=== PATIENT | female | born 1980 | race American Indian/Alaskan Native ===

== ENCOUNTER 2018-12-03 11:09 | Emergency (ER) | payer SELFPAY ==
[2018-12-03] MEDS ORDERED: NORCO 10/325 PO ONE (14:32)
--- NOTE | 2018-12-03 14:34 | Emergency Department Report ---
Blank Doc - Documentation Documentation: This is a 38-year-old female that presents with right breast abscess. Stated is on clinda now. This initial assessment/diagnostic orders/clinical plan/treatment(s) is/are subject to change based on patient's health status, clinical progression and re- assessment by fellow clinical providers in the ED. Further treatment and workup at subsequent clinical providers discretion. Patient/guardians urged not to elope from the ED as their condition may be serious if not clinically assessed and managed. Initial orders include: 1- Patient sent to [facility] for further evaluation and treatment 2- [facility] for pain.
--- NOTE | 2018-12-03 15:51 | Emergency Department Report ---
- General Chief complaint: Skin/Abscess/Foreign Body Stated complaint: ABSCESS/R SIDE PAIN/DRAINAGE Time Seen by Provider: 12/03/18 14:32 Source: patient Mode of arrival: Ambulatory Limitations: No Limitations - History of Present Illness Initial comments: 38-year-old -[place] female presents to emergency room with pain and drainage from right breast abscess. Patient states she is currently on clindamycin that was prescribed to her at an ER in [place]. Patient reports that the ibuprofen is not helping with the pain. Patient reports she has not followed up with the breast specialists that she was referred to. Patient denies any fever or chills. MD complaint: abscess/boil Onset/Timin -: week(s) Severity scale (0 -10): 9 Quality: burning, sharp, constant Consistency: constant Improves with: none Worsens with: palpation, movement Associated symptoms: denies other symptoms Treatments Prior to Arrival: bandages, antibiotic, NSAID - Related Data Previous Rx's Medication Instructions Recorded Last Taken Type HYDROcodone/APAP 5-325 [Raymond 1 each PO Q6HR PRN #12 tablet 12/03/18 Unknown Rx 5/325] Ibuprofen [Motrin 800 MG tab] 800 mg PO Q8HR PRN #30 tablet 12/03/18 Unknown Rx cephALEXin [Keflex] 500 mg PO Q12HR 10 Days #20 cap 12/03/18 Unknown Rx Allergies Allergy/AdvReac Type Severity Reaction Status Date / Time No Known Allergies Allergy Unverified 12/03/18 11:16 Abscess Boil HPI - HPI Chief Complaint: Skin/Abscess/Foreign Body Stated Complaint: ABSCESS/R SIDE PAIN/DRAINAGE Time Seen by Provider: 12/03/18 14:32 Home Medications: Previous Rx's Medication Instructions Recorded Last Taken Type HYDROcodone/APAP 5-325 [Raymond 1 each PO Q6HR PRN #12 tablet 12/03/18 Unknown Rx 5/325] Ibuprofen [Motrin 800 MG tab] 800 mg PO Q8HR PRN #30 tablet 12/03/18 Unknown Rx cephALEXin [Keflex] 500 mg PO Q12HR 10 Days #20 cap 12/03/18 Unknown Rx Allergies/Adverse Reactions: Allergies Allergy/AdvReac Type Severity Reaction Status Date / Time No Known Allergies Allergy Unverified 12/03/18 11:16 ED Review of Systems ROS: Stated complaint: ABSCESS/R SIDE PAIN/DRAINAGE Other details as noted in HPI Comment: All other systems reviewed and negative Constitutional: denies: chills, fever Eyes: denies: eye pain, eye discharge, vision change ENT: denies: ear pain, throat pain Respiratory: denies: cough, shortness of breath, wheezing Cardiovascular: denies: chest pain, palpitations Skin: other (right breasts redness and pain) ED Past Medical Hx - Past Medical History Previous Medical History?: No - Surgical History Past Surgical History?: Yes Additional Surgical History: C section - Social History Smoking Status: Current Every Day Smoker Substance Use Type: Alcohol, Marijuana - Medications Home Medications: Home Medications Medication Instructions Recorded Confirmed Last Taken Type HYDROcodone/APAP 5-325 [Raymond 1 each PO Q6HR PRN #12 tablet 12/03/18 Unknown Rx 5/325] Ibuprofen [Motrin 800 MG tab] 800 mg PO Q8HR PRN #30 tablet 12/03/18 Unknown Rx cephALEXin [Keflex] 500 mg PO Q12HR 10 Days #20 cap 12/03/18 Unknown Rx ED Physical Exam - General Limitations: No Limitations General appearance: alert, in no apparent distress - Head Head exam: Present: atraumatic, normocephalic - Eye Eye exam: Present: normal appearance - ENT ENT exam: Present: mucous membranes moist - Neck Neck exam: Present: normal inspection - Back Exam Back exam: Present: normal inspection - Neurological Exam Neurological exam: Present: alert, oriented X3 - Psychiatric Psychiatric exam: Present: normal affect, normal mood - Expanded Skin Exam Expanded Type of lesion: Present: abscess Distribution of rash: other (right breasts) Description of rash: Present: tenderness, erythematous, swelling, discharge ED Course Vital Signs 12/03/18 11:17 Temperature 97.9 F Pulse Rate 60 Respiratory 17 Rate Blood Pressure 157/85 O2 Sat by Pulse 100 Oximetry ED Medical Decision Making - Medical Decision Making 38-year-old female comes in for pain and drainage to the right breasts secondary to her right breast abscess. Patient is currently on Clinda. Discussed the patient will place her on Keflex 500 mg by mouth twice a day for 10 days pain medication consisting of Raymond twice a day with ibuprofen to continue every 6-8 hours. Patient be also referred for breast clinic by this provider. Patient verbalized understanding. Critical care attestation.: If time is entered above; I have spent that time in minutes in the direct care of this critically ill patient, excluding procedure time. ED Disposition Clinical Impression: Cellulitis of right breast Disposition: [id number] TO HOME OR SELFCARE Is pt being admited?: No Does the pt Need Aspirin: No Condition: Stable Instructions: Abscess (ED) Additional Instructions: Complete antibiotics as prescribed pain medication as needed follow-up with the breast clinic I have listed their information below. Prescriptions: cephALEXin [Keflex] 500 mg PO Q12HR 10 Days #20 cap Ibuprofen [Motrin 800 MG tab] 800 mg PO Q8HR PRN #30 tablet PRN Reason: Pain , Severe (7-10) HYDROcodone/APAP 5-325 [Raymond 5/325] 1 each PO Q6HR PRN #12 tablet PRN Reason: Pain Referrals: UMAIR CASTILLO MD [Primary Care Provider] - 3-5 Days CARLOS SCOTT MD [Referring] - 3-5 Days
[2018-12-03 16:09] VITALS: BP 150/80
== END 2018-12-03 16:07 | disposition home or self-care (01) ==
LOC: ED 11:09
DX: N61.0 Mastitis without abscess (principal)
CPT/HCPCS: 99283